=== PATIENT | male | born 1955 | race Caucasian/White ===

== ENCOUNTER 2025-05-17 15:46 | Emergency (ER) | payer MEDICARE, BC ==
[2025-05-17] MEDS: Bacitracin Oint 1 GM U/D Packet TOP ONE (17:15)
== END 2025-05-17 17:29 | disposition home or self-care (01) ==
LOC: DL.ED 15:46
DX: S61.212A Laceration without foreign body of right middle finger without damage to nail, initial encounter (principal); I10 Essential (primary) hypertension; E11.9 Type 2 diabetes mellitus without complications; W29.3XXA Contact with powered garden and outdoor hand tools and machinery, initial encounter
CPT/HCPCS: 12001; 73140; 99283; A9270